=== PATIENT | male | born 1930 | race Caucasian/White ===

== ENCOUNTER 2018-01-14 11:41 | Emergency (ER) | payer OTHER ==
[~2018-01-14] VITALS: Ht 162.6 cm; Wt 72.6 kg
[~2018-01-14 11:41] MED LIST: ATENOLOL-CHLORT1 TA2; ENALAPRIL MALEA10 MG; GLIMEPIRIDE4 MG; GLIPIZIDE10 MG; METFORMIN HCL1000 MG
[2018-01-14] MEDS ORDERED: NAMENDA5 MG PO (12:45)
== END 2018-01-14 17:51 | disposition home or self-care (01) ==
LOC: ER 11:41
DX: R42 Dizziness and giddiness (principal); T44 Poisoning by, adverse effect of and underdosing of drugs primarily affecting the autonomic nervous system; T43.8X4A Poisoning by other psychotropic drugs, undetermined, initial encounter; Y92.89 Other specified places as the place of occurrence of the external cause

== ENCOUNTER 2020-10-08 12:19 | Inpatient (IN) | payer OTHER ==
[~2020-10-08] VITALS: Ht 167.6 cm; Wt 45.4 kg
[~2020-10-08 12:19] MED LIST changes: +NAMENDA5 MG PO
[2020-10-08] MEDS ORDERED: ESTAZOLAM2 MG (12:54)
[2020-10-08] MEDS ORDERED: NORVASC2.5 MG (12:54)
[2020-10-08] MEDS ORDERED: SEROQUEL50 MG (12:55)
[2020-10-29] MEDS ORDERED: DILTIAZEM ER120 M2 PO (11:52)
[2020-10-29] MEDS ORDERED: ELIQUIS2.5 MG PO (11:52)
[2020-10-29] MEDS ORDERED: QUETIAPINE FUMA25 MG PO (11:54)
[2020-10-29] MEDS ORDERED: BUSPIRONE HCL5 MG PO (11:54)
[2020-10-29] MEDS ORDERED: CALCIUM 500 +1 EACH PO (11:55)
[2020-10-29] MEDS ORDERED: PRE PROTEIN1 EACH PO (11:55)
[2020-10-29] MEDS ORDERED: TRADJENTA5 MG PO (11:57)
[2020-10-29] MEDS ORDERED: PROTONIX40 MG PO (11:58)
[2020-10-29] MEDS ORDERED: Lantus 1000 UNITS/10 SUBCUTANEO (12:01)
[2020-10-29] MEDS ORDERED: Diflucan 100MG TABLE PO (12:01)
== END 2020-10-29 14:57 | disposition home health service (06) | DRG 637 ==
LOC: ER 12:19 → MEDI 17:27 → SURH 10-09 14:42
PROVIDERS: ADMIT Internal Medicine; ATTEND Internal Medicine
PROC: 4A12X4Z Monitoring of Cardiac Electrical Activity, External Approach (ICD-10-PCS; principal; 2020-10-10)
PROC: 02HV33Z Insertion of Infusion Device into Superior Vena Cava, Percutaneous Approach (ICD-10-PCS; 2020-10-11)
DX: E11.00 Type 2 diabetes mellitus with hyperosmolarity without nonketotic hyperglycemic-hyperosmolar coma (NKHHC) (principal); A41.9 Sepsis, unspecified organism; E87.0 Hyperosmolality and hypernatremia; N17.8 Other acute kidney failure; B37.49 Other urogenital candidiasis; Z74.01 Bed confinement status; G30.9 Alzheimer's disease, unspecified; F02.80 Dementia in other diseases classified elsewhere, unspecified severity, without behavioral disturbance, psychotic disturbance, mood disturbance, and anxiety; Z20.822 Contact with and (suspected) exposure to COVID-19; E86.0 Dehydration; R13.19 Other dysphagia; E11.649 Type 2 diabetes mellitus with hypoglycemia without coma; I48.91 Unspecified atrial fibrillation; R33.8 Other retention of urine; Z79.84 Long term (current) use of oral hypoglycemic drugs